=== PATIENT | female | born 1970 | race Caucasian/White ===

== ENCOUNTER 2019-07-15 20:34 | Emergency (ER) | payer BC ==
--- OUTSIDE RECORDS SUMMARY | 2019-07-15 20:52 | XMS REPORT | Continuity of Care Document ---
:1970 External Reference #:[id number] Author Name Luis Dawkins M.D. Address [address] [place] [address] Care Team Providers Name Role Phone Manny Reyes M.D. - Family Medicine Care Team Information Lieutenant Governor [phone] Tony Doe M.D. - Plastic Surgery Care Team Information Lieutenant Governor [phone] Within the Head and Neck Problems Active Problems Provider Date Tear film insufficiency Jarod Dobbs M.D. Onset: 06/07/2019 Attention deficit hyperactivity disorder Onset: Moderate depression Onset: Lagophthalmos Luis Dawkins M.D. Onset: 07/06/2019 Social History Type Date Description Comments Sex Unknown ETOH Use Occasionally consumes alcohol Tobacco Use Start: Unknown Patient has never smoked Recreational Drug Use Denies Drug Use Smoking Status Reviewed: 07/06/19 Patient has never smoked Allergies, Adverse Reactions, Alerts Active Allergies Reaction Severity Comments Date Clavulanic Acid 06/07/2019 Clindamycin 06/07/2019 Sulfamethoxazole 06/07/2019 Animals 07/06/2019 Medications Active Medications SIG Qnty Indications Ordering Provider Date Adderall Unknown 5mg Tablets Wellbutrin SR 1 tab twice a Unknown 100mg Tablets day by mouth ER 12HR Bupropion Hydrochloride Unknown ER (SR) 200mg Tablets ER 12HR Pramipexole Unknown Dihydrochloride 1mg Tablets Sumatriptan Succinate Unknown 100mg Tablets Restasis Instill 1 Drop Unknown 0.05% Emulsion In Both Eyes Two Times A Day Prednisolone Acetate Instill 2 Drops Unknown 1% In Both Eyes Suspension Every 4 Hours Angie 128 QH4 Unknown 2% Solution Immunizations Description No Information Available Vital Signs Description No Information Available Results Description No Information Available Procedures Date Code Description Status 06/07/2019 80442 New Patient Comprehensive Exam Completed Medical Devices Description No Information Available Encounters Description No Information Available Assessments Date Code Description Provider 07/06/2019 H02.204 Unspecified lagophthalmos left upper eyelid Luis Dawkins M.D. 06/07/2019 H04.123 Dry eye syndrome of bilateral lacrimal Jarod Sushma Dobbs M.D. glands Plan of Treatment 07/06/2019 - Luis Dawkins M.D.H02.204 Unspecified lagophthalmos left upper eyelidComments:Smoking can increase the risk of developing or worsening any eye related disease, as well as affect your overall health. If you are a smoker, we strongly recommend that you quit.If you are not a smoker, we strongly recommend that you do not start. STOP USING THE ANGIE.CONTINUE USING THE PREDNISOLONE EYE DROP FOR 10 MORE DAYS DIRECTED. CONTINUE TO USE THE MOISTURE GEL DROPS EVERY 4 HOURSFollow up:As needed Functional Status Description No Information Available Mental Status Description No Information Available Referrals Description No Information Available
--- NOTE | 2019-07-15 21:01 | ED ---
Upper Extremity Pain - HPI Summary HPI Summary: This pt is a 48 Y/O F presenting to [facility] accompanied by her friend with a CC of a L shoulder injury that occurred at 1730 at the gym today. She states that the pain in an 8/10 in severity. She states that she was preforming a lifting exercise when she heard a sound described as cracking knuckles. She states that her shoulder hurts with abduction, rotations, and flexion. She denies any cough, fever, chills, and neck pain. She states that she has a PMHx of hypermobility syndrome. - History of Current Complaint Chief Complaint: EDShoulderClavicCruzj Stated Complaint: LT SHOULDER INJURY PER PT Time Seen by Provider: 07/15/19 20:53 Hx Obtained From: Patient Mechanism Of Injury: Other - lifting weights Onset/Duration: Started Hours Ago, Still Present Timing: Constant Severity Initially: Severe Severity Currently: Severe Pain Location: Shoulder - L Aggravating Factor(s): Flexion, Abduction, Twisting Alleviating Factor(s): Rest Associated Signs & Symptoms: Positive: Negative - cough, chills, and neck pain. , Weakness. Negative: Fever Related History: Similar Episode/Dx As - Allergies/Home Medications Allergies/Adverse Reactions: Allergies Allergy/AdvReac Type Severity Reaction Status Date / Time amoxicillin [From Augmentin] Allergy throat Verified 07/15/19 20:40 tightness clavulanic acid Allergy throat Verified 07/15/19 20:40 [From Augmentin] tightness clindamycin Allergy throat Verified 07/15/19 20:40 tightness Sulfa (Sulfonamide Allergy See Comment Verified 07/15/19 20:40 Antibiotics) PMH/Surg Hx/FS Hx/Imm Hx Previously Healthy: Yes Endocrine/Hematology History: Denies: Hx Anticoagulant Therapy, Hx Diabetes, Hx Thyroid Disease Cardiovascular History: Denies: Hx Hypertension, Hx Pacemaker/ICD, Hx Peripheral Vascular Disease Respiratory History: Reports: Hx Asthma Denies: Hx Chronic Obstructive Pulmonary Disease (COPD) GI History: Denies: Hx Cirrhosis History: Denies: Hx Renal Disease Musculoskeletal History: Reports: Other Musculoskeletal History - hypermobility Denies: Hx Arthritis, Hx Osteoporosis Sensory History: Denies: Hx Cataracts, Hx Contacts or Glasses, Hx Glaucoma, Hx Hearing Aid Opthamlomology History: Denies: Hx Cataracts, Hx Contacts or Glasses, Hx Glaucoma Neurological History: Reports: Hx Headaches Denies: Hx Dementia, Hx Seizures, Hx Transient Ischemic Attacks (TIA) Psychiatric History: Denies: Hx Anxiety, Hx Depression, Hx Panic Disorder, Hx Substance Abuse - Cancer History Hx Chemotherapy: No Hx Radiation Therapy: No - Surgical History Surgical History: Yes Surgery Procedure, Year, and Place: NODULES ON VOCAL CORDS, BREAST REDUCTION, R SHOULDER ROTATOR CUFF SURGERY Infectious Disease History: No Infectious Disease History: Denies: Hx Clostridium Difficile, Hx Hepatitis, Hx Human Immunodeficiency Virus (HIV), Hx Shingles, Hx Tuberculosis, Traveled Outside the [place] in Last 30 Days - Family History Known Family History: Positive: Other - hypermobility syndrome in mother Negative: Cardiac Disease, Diabetes - Social History Occupation: Employed Full-time Lives: With Family Alcohol Use: Rare Hx Substance Use: No Substance Use Type: Reports: None Hx Tobacco Use: No Smoking Status (MU): Never Smoked Tobacco Review of Systems Negative: Fever, Chills ENT: Negative - neck pain Negative: Cough Positive: Decreased ROM, Other - L shoulder pain All Other Systems Reviewed And Are Negative: Yes Physical Exam - Summary Physical Exam Summary: Constitutional: Well-developed, Well-nourished, Alert. (-) Distressed Skin: Warm, Dry HENT: Normocephalic; Atraumatic Eyes: Conjunctiva normal Neck: Musculoskeletal ROM normal neck. (-) JVD, (-) Stridor, (-) Tracheal deviation Cardio: Rhythm regular, rate normal, Heart sounds normal; Intact distal pulses; The pedal pulses are 2+ and symmetric. Radial pulses are 2+ and symmetric. (-) Murmur Pulmonary/Chest wall: Effort normal. (-) Respiratory distress, (-) Wheezes, (-) Rales Abd: Soft, (-) tenderness, (-) Distension, (-) Guarding, (-) Rebound Musculoskeletal: (-) Edema, Negative nears test, Pain with abduction, no pain with adduction, No bony tenderness, pain to palpitation Lymph: (-) Cervical adenopathy Neuro: Alert, Oriented x3 Psych: Mood and affect Normal Triage Information Reviewed: Yes Vital Signs On Initial Exam: Initial Vitals Temp Pulse Resp BP Pulse Ox 98.5 F 78 15 158/101 100 07/15/19 20:37 07/15/19 20:37 07/15/19 20:37 07/15/19 20:37 07/15/19 20:37 Vital Signs Reviewed: Yes Diagnostics - Vital Signs Vital Signs Temp Pulse Resp BP Pulse Ox 07/15/19 20:37 98.5 F 78 15 158/101 100 - Laboratory Lab Statement: Any lab studies that have been ordered have been reviewed, and results considered in the medical decision making process. Course/Dx - Course Course Of Treatment: Patient is here with possible left shoulder injury in the setting of hypermobility syndrome. Patient's symptoms are consistent with a rotator cuff injury. Patient was told by her orthopedic surgeon [facility] that she needs urgent surgery with injuries need to be diagnosed via urgent MRI. Patient has no medical need for an emergent MRI tonight. Even if an MRI showed a injury, patient will not be seen by her orthopedic surgeon until Thursday due to the holiday weekend. Patient is encouraged to call the orthopedic surgeon tomorrow to have her referred for an outpatient MRI. - Diagnoses Provider Diagnoses: Injury of left shoulder, Hypermobility arthralgia Discharge ED - Sign-Out/Discharge Documenting (check all that apply): Patient Departure - discharge Patient Received Moderate/Deep Sedation with Procedure: No - Discharge Plan Condition: Stable Disposition: HOME Patient Education Materials: Shoulder Sprain (ED), Connective Tissue Disorders (ED) Referrals: Manny Reyes MD [Primary Care Provider] - 2 Days Additional Instructions: CALL YOUR ORTHOPEDIC IN THE MORNING TO SCHEDULE AN EMERGENT MRI. RETURN TO THE EMERGENCY DEPARTMENT FOR ANY NEW OR WORSENING SYMPTOMS. USE YOUR SLING AT HOME AND TAKE IBUPROFEN FOR PAIN MANAGEMENT. - Billing Disposition and Condition Condition: STABLE Disposition: Home - Attestation Statements Document Initiated by Jamey: Yes Documenting Scribe: Ivan Kraus Provider For Whom Jamey is Documenting (Include Credential): Doroteo Mckee MD Scribe Attestation: vIan Torres, scribed for Doroteo Mckee MD on 07/15/19 at 2143. Scribe Documentation Reviewed: Yes Provider Attestation: The documentation as recorded by the Ivan mirza accurately reflects the service I personally performed and the decisions made by me, Doroteo Mckee MD Status of Scribe Document: Viewed
[2019-07-15 22:13] VITALS: BP 125/94
== END 2019-07-15 22:07 | disposition home or self-care (01) ==
LOC: ED 20:34
DX: S49.92XA Unspecified injury of left shoulder and upper arm, initial encounter (principal); X50.9XXA Other and unspecified overexertion or strenuous movements or postures, initial encounter; Y92.9 Unspecified place or not applicable; Z79.899 Other long term (current) drug therapy; Z88.1 Allergy status to other antibiotic agents; Z88.2 Allergy status to sulfonamides
CPT/HCPCS: 99281

== ENCOUNTER 2019-08-12 06:24 | Inpatient (IN) | payer BC ==
[2019-08-12] MEDS ORDERED: Morphine 4 MG/ML VIAL (1 ml) 4 MG/ML VIAL IV ONE ×2 (06:42→10:25)
[2019-08-12] MEDS ORDERED: Ondansetron INJ* 2 MG/ML VIAL IV ONE ×2 (06:42→10:39)
[2019-08-12] MEDS ORDERED: NS 0.9% 1000 ML** 1,000 ML IV ONE ×2 (06:46→09:52)
--- NOTE | 2019-08-12 06:47 | ED ---
Abdominal Pain/Female - HPI Summary HPI Summary: This patient is a 48-year-old female with a recent rotator cuff surgery 9 days ago presenting to the ED with severe 10/10 abdominal pain starting in the director of patient care hours. She states she felt pressure as well as pain in the area which was improved after she had a bowel movement. Bowel movement contained bright red blood. Patient states the pain lessened and then returned worse than before. She has a very high pain tolerance which makes this most concerning for her. She has been taking opioids for the pain related to RTC surgery ([facility]). She does endorse nausea, however this is mild. Denies drug use. Denies urinary symptoms or back pain. Denies CP or SOB. She also had an episode after BM of profuse diaphoresis. No subjective fevers and denies recent illness. Denies bleeding or clotting disorder. Current medications include Imitrex, aspirin, Pramiprexole, Wellbutrin, Adderall. Colonoscopy in November from Dr. Centeno shows possible protitis. She did have blood stools at that time, but has not had any episodes since. RTC surgery by surgeon in [facility] 9 days ago. - History of Current Complaint Chief Complaint: EDBrissa Stated Complaint: ABD PAIN/BLOOD IN STOOL PER PT Time Seen by Provider: 08/12/19 06:32 Hx Obtained From: Patient, Family/Dock Pumper ?: No Onset/Duration: Sudden Onset Timing: Constant Severity Initially: Severe Severity Currently: Severe Pain Intensity: 9 Pain Scale Used: 0-10 Numeric Location: Diffuse Radiates: No Character: Sharp, Cramping, Tearing Aggravating Factor(s): Nothing Alleviating Factor(s): Bowel Movement - temporarily Associated Signs and Symptoms: Positive: Diaphoresis, Constipation, Blood in Stool, Diarrhea. Negative: Fever, Cough, Chest Pain, Dizzy, Urinary Symptoms, Decreased Appetite, Vaginal Bleeding, Nausea, Vomiting - Risk Factors Ectopic Risk Factor: Negative Ovarian Torsion Risk Factor: Negative Allergies/Adverse Reactions: Allergies Allergy/AdvReac Type Severity Reaction Status Date / Time clavulanic acid Allergy throat Verified 08/12/19 06:30 [From Augmentin] tightness clindamycin Allergy throat Verified 08/12/19 06:30 tightness Sulfa (Sulfonamide Allergy See Comment Verified 08/12/19 06:30 Antibiotics) Home Medications: Home Medications Aspirin EC TAB* [Ecotrin EC Low Dose 81 MG*] 81 mg PO DAILY 08/12/19 [History Confirmed 08/12/19] Nitroglycerin TAB 0.4 MG* 0.4 mg SL Q5M PRN 08/12/19 [History Confirmed 08/12/19 ] Pramipexole TAB* [Mirapex TAB*] 1 mg PO DAILY 08/12/19 [History Confirmed ] buPROPion SR TAB* [Wellbutrin SR TAB*] 400 mg PO BID 08/12/19 [History Confirmed 08/12/19] oxyCODONE/Acetam5/325MG PREPAK [Percocet 5/325 TAB*] 1 tab PO Q4HR PRN 08/12/19 [History Confirmed 08/12/19] PMH/Surg Hx/FS Hx/Imm Hx Previously Healthy: Yes Endocrine/Hematology History: Denies: Hx Anticoagulant Therapy, Hx Diabetes, Hx Thyroid Disease Cardiovascular History: Denies: Hx Hypertension, Hx Pacemaker/ICD, Hx Peripheral Vascular Disease Respiratory History: Reports: Hx Asthma Denies: Hx Chronic Obstructive Pulmonary Disease (COPD) GI History: Denies: Hx Cirrhosis History: Denies: Hx Renal Disease Musculoskeletal History: Reports: Other Musculoskeletal History - hypermobility Denies: Hx Arthritis, Hx Osteoporosis Sensory History: Denies: Hx Cataracts, Hx Contacts or Glasses, Hx Glaucoma, Hx Hearing Aid Opthamlomology History: Denies: Hx Cataracts, Hx Contacts or Glasses, Hx Glaucoma Neurological History: Reports: Hx Headaches Denies: Hx Dementia, Hx Seizures, Hx Transient Ischemic Attacks (TIA) Psychiatric History: Denies: Hx Anxiety, Hx Depression, Hx Panic Disorder, Hx Substance Abuse - Cancer History Hx Chemotherapy: No Hx Radiation Therapy: No - Surgical History Surgery Procedure, Year, and Place: NODULES ON VOCAL CORDS, BREAST REDUCTION, R SHOULDER ROTATOR CUFF SURGERY. BLEPHAROPLASTY - Immunization History Hx Pertussis Vaccination: No Immunizations Up to Date: Yes Infectious Disease History: No Infectious Disease History: Denies: Hx Clostridium Difficile, Hx Hepatitis, Hx Human Immunodeficiency Virus (HIV), Hx Shingles, Hx Tuberculosis, Traveled Outside the [place] in Last 30 Days - Family History Known Family History: Positive: Other - hypermobility syndrome in mother Negative: Cardiac Disease, Diabetes - Social History Occupation: Employed Full-time Lives: With Family Alcohol Use: Rare Hx Substance Use: No Substance Use Type: Reports: None Hx Tobacco Use: No Smoking Status (MU): Never Smoked Tobacco Review of Systems Positive: Skin Diaphoresis. Negative: Fever, Chills, Fatigue Negative: Palpitations, Chest Pain Negative: Shortness Of Breath, Cough Positive: Abdominal Pain, Diarrhea, Other - BRBPR Genitourinary: Negative Positive: no symptoms reported, see HPI Negative: Arthralgia, Myalgia Negative: Rash, Bruising Neurological: Negative All Other Systems Reviewed And Are Negative: Yes Physical Exam Triage Information Reviewed: Yes Vital Signs On Initial Exam: Initial Vitals Temp Pulse Resp BP Pulse Ox 97.5 F 87 16 158/101 100 08/12/19 06:26 08/12/19 06:08/12/19 06:08/12/19 06:08/12/19 06:26 Vital Signs Reviewed: Yes Appearance: Positive: Pain Distress Skin: Positive: Warm, Skin Color Reflects Adequate Perfusion, Dry Head/Face: Positive: Normal Head/Face Inspection Eyes: Positive: EOMI, OLENA, Conjunctiva Clear Neck: Positive: Supple, No Lymphadenopathy Respiratory/Lung Sounds: Positive: Clear to Auscultation, Breath Sounds Present Cardiovascular: Positive: RRR, Pulses are Symmetrical in both Upper and Lower Extremities Abdomen Description: Positive: Other: - tenderness throughout bilateral lower quadrants without radiation Musculoskeletal: Positive: Normal, Strength/ROM Intact Neurological: Positive: Speech Normal Psychiatric: Positive: Normal, Affect/Mood Appropriate AVPU Assessment: Alert Diagnostics - Vital Signs Vital Signs Temp Pulse Resp BP Pulse Ox 08/12/19 06:26 97.5 F 87 16 158/101 100 - Laboratory Result Diagrams: 08/12/19 06:59 08/12/19 06:59 Lab Statement: Any lab studies that have been ordered have been reviewed, and results considered in the medical decision making process. Abdominal Pain Fem Course/Dx - Course Course Of Treatment: During his course of treatment, the patient is evaluated for severe lower abdominal pain. Pain is currently rated at 10/10. On arrival into the ED, due to her pain distress, she was immediately given morphine and Zofran on arrival and 1 L fluids. On physical examination, she has diffuse tenderness throughout, she states somewhat worse to the right side. Denies any pain above the umbilicus, no right upper quadrant or left upper quadrant tenderness. She does describe the pain as cramping, stabbing, sharp and diffuse. She denies any nausea or vomiting with these episodes. One bloody loose stool this morning, however she has been c/o constipation secondary to her recent opioids for RTC surgery. Morphine did improve her symptoms, however after approximately 1.5 hours, she complains of 9/10 pain again, and she was given 1 mg Dilaudid. Labs were obtained which shows slight hypomagnesemia and hypokalemia. These were repleted with 2 mg magnesium and 20 PO potassium chloride. She was subsequently given 8mg morphine and 4mg zofran d/t continuing pain. CT abdomen and pelvis obtained: IMPRESSION: Wall thickening of the descending colon and transverse colon consistent with colitis. There is wall thickening of the body of the stomach. Although this may represent food material, cannot totally exclude an underlying mass and clinical correlation and upper GI series or endoscopy is suggested. Hepatic cysts are noted. At this point, I am concerned she has ischemic colitis secondary to opioids vs. other etiology. Discussed case with Dr. Mathews who agrees to consult and admit for further evaluation and pain management. Discussed case with Dr. Sethi at 11:10 AM also agreeing to see patient. Pt admitted at 11:30am. - Diagnoses Differential Diagnosis: Positive: Bowel Obstruction, Constipation, Diverticulitis, Other - ischemic colitis, colitis, BRBPR Provider Diagnoses: Abdominal pain - Provider Notifications Discussed Care Of Patient With: Fer Mathews Instructed by Provider To: Admit As Inpatient - On Discharge ED - Sign-Out/Discharge Documenting (check all that apply): Patient Departure Patient Received Moderate/Deep Sedation with Procedure: No - Discharge Plan Condition: Fair Disposition: ADMITTED TO [facility] Referrals: Manny Reyes MD [Primary Care Provider] - - Billing Disposition and Condition Condition: FAIR Disposition: Admitted to [facility]
[2019-08-12 07:10] LABS: ABS Eosinophils 0.1 10^3/ul (0-0.6); ABS Lymphocytes 0.8 10^3/ul (1.0-4.8); ABS Monocytes 0.6 10^3/ul (0-0.8); ABS Neutrophils 11.4 10^3/ul (1.5-7.7); Eosinophil % 1.1 %; Hematocrit 34 % (35-47); Hemoglobin 11.7 g/dL (12.0-16.0); Lymphocyte % 6.3 %; Mean Corpuscular HGB Conc 35 g/dL (31-36); Mean Corpuscular Hemoglobin 30 pg (27-31); Mean Corpuscular Volume 86 fL (80-97); Mean Platelet Volume 9.2 fL (7.4-10.4); Platelet Count 198 10^3/uL (150-450); Red Blood Count 3.95 10^6 /uL (3.70-4.87); Red Cell Distribution Width 13 % (10-15); White Blood Count 13.1 10^3/uL (3.5-10.8)
[2019-08-12 07:29] LABS: ALT 29 U/L (7-52); AST 25 U/L (13-39); Albumin 3.9 g/dL (3.2-5.2); Albumin/Globulin Ratio 1.6 (1-3); Alkaline Phosphatase 56 U/L (34-104); Anion Gap 8 mmol/L (2-11); BUN/Creatinine Ratio 11.4 (8-20); Blood Urea Nitrogen 8 mg/dL (6-24); CO2 Carbon Dioxide 26 mmol/L (22-32); Calcium 8.9 mg/dL (8.6-10.3); Chloride 101 mmol/L (101-111); EGFR African American 108.1 (>60); EGFR Non-African American 89.3 (>60); Globulin 2.4 g/dL (2-4); Glucose 133 mg/dL (70-100); Magnesium 1.5 mg/dL (1.9-2.7); Potassium 3.2 mmol/L (3.5-5.0); Sodium 135 mmol/L (135-145); Total Protein 6.3 g/dL (6.4-8.9)
[2019-08-12 07:35] LABS: HCG Pregnancy < 0.60 mIU/mL
[2019-08-12] MEDS ORDERED: HYDROmorphone INJ* 0.5 MG/0.5 ML SYRINGE IV ONE ×2 (08:15→11:35)
--- OUTSIDE RECORDS SUMMARY | 2019-08-12 08:18 | XMS REPORT | Continuity of Care Document ---
:1970 External Reference #:[id number] Author Name Anne Haider M.D. (transmitted by agent of provider Yojana Conklin) Address [address] [place] [address] Care Team Providers Name Role Phone Manny Reyes MD - Family Medicine Care Team Information Picker Feeder [phone] James Perry MD - Gastroenterology Care Team Information Picker Feeder [phone] Irene Olmedo MD - Obstetrics & Care Team Information Picker Feeder [phone] Gynecology Problems Active Problems Provider Date Mild persistent asthma Fer Mathews M.D.,FACP Onset: 04/17/2014 Migraine without aura Fer Mathews M.D.,FACP Onset: 04/17/2014 Postconcussion syndrome Fer Mathews M.D.,FACP Onset: 04/17/2014 Posttraumatic stress disorder Fer Mathews M.D.,FACP Onset: 04/17/2014 Anxiety disorder Fer Mathews M.D.,FACP Onset: 04/17/2014 Strain of rotator cuff capsule Anne Haider M.D. Onset: 07/20/2019 Social History Type Date Description Comments Sex Unknown ETOH Use Currently consumes alcohol Tobacco Use Start: Unknown Patient smoking status is unknown Smoking Status Reviewed: 07/20/19 Patient smoking status is unknown Exercise Type/Frequency Exercises regularly Allergies, Adverse Reactions, Alerts Active Allergies Reaction Severity Comments Date Clavulanic Acid 06/15/2015 Clindamycin 01/20/2017 Inactive Allergies NKDA 04/17/2014 Medications Active Medications SIG Qnty Indications Ordering Date Provider Ciprofloxacin HCL 1 po bid 14tabs Fer Tolentino 10/18/2018 500mg Prema Mathews,FACP Tablets Epipen 2-Lamont inject as 2units Fer Tolentino 08/05/2018 0.3mg/0.3ML directed prn Prema Mathews,FACP Solution Auto-Inject Carafate 1 qid prn 40tabs Fer Tolentino 04/08/2018 1gm Tablets Prema Mathews,FACP Flovent HFA 2 puff twice a 12gm Fer Tolentino 08/13/2017 110mcg/Act day Prema Mathews,FACP Aerosol Patanol 1-2 drops each 5units Fer Tolentino 08/12/2017 0.1% Solution eye every day Prema Mathews,FACP twice a day as needed Naproxen 1 by mouth twice 60tabs M25.511 Willi F 04/09/2017 500mg Tablets a day as needed MD Lucinda pain Metronidazole topical twice a 45gm Fer Tolentino 12/13/2015 0.75% Gel day for perioral Prema Mathews,FACP dermatitis Ventolin HFA 2 puffs po qid 1mon Fer Tolentino 09/24/2014 108(90Base) prn Prema Mathews,FACP mcg/Act Aerosol Triamcinolone Acetonide topical every day 30g Fer Tolentino 03/09/2014 to affected area Prema Mathews,FACP 0.1% Ointment as needed Ibuprofen Take 1 Tablet 90tabs Fer Tolentino 08/13/2010 600mg Tabs Orally Three Prema Mathews,FACP Times A Day as Needed Pramipexole take one tablet 30tabs Fer Tolentino 06/22/2010 Dihydrochloride by mouth at Prema Mathews,FACP 1mg Tablets bedtime Imitrex 1/2-1 every 2 18tabs Fer Tolentino 06/13/2009 100mg Tablets hours as needed Prema Mathews,FACP mdd2 (please deliver) Bupropion HCL ER (SR) take one tablet 60tabs Fer Tolentino 200mg by mouth every Prema Mathews,FACP Tablets ER 12HR morning and 1 tablet in the early afternoon Immunizations CPT Code Status Date Vaccine Reaction Lot # [id number] Given 09/15/2017 Influenza Virus Vaccine, No immediate [id number] Quadrivalent, Split, reaction...jh Preservative Free 56595 Given 09/18/2014 Flu Vaccine Split Virus Preservative Free For Indiv 3Yr Older [id number] Given 10/24/2013 Flu Vaccine Split Virus Preservative Free For Indiv 3Yr Older 95684 Given 10/29/2012 Flu Vaccine Split Virus [id number] Preservative Free For Indiv 3Yr Older 90603 Given 09/04/2009 Influenza Virus 3Yrs & Over Vital Signs Date Vital Result Comment 07/20/2019 12:46pm Height 68.5 inches 5'8.50" Weight 153.00 lb stated Heart Rate 78 /min BP Systolic 120 mmHg BP Diastolic 72 mmHg Respiratory Rate 12 /min Pain Level 8 8 with movement BMI (Body Mass Index) 22.9 kg/m2 04/09/2017 8:21am Height 68.5 inches 5'8.50" Weight 154.00 lb Heart Rate 72 /min BP Systolic 110 mmHg BP Diastolic 72 mmHg Respiratory Rate 14 /min Body Temperature 97.3 F Pain Level 4 BMI (Body Mass Index) 23.1 kg/m2 Results Description No Information Available Procedures Date Code Description Status 10/27/2014 18572992 Mammogram Completed 10/19/2014 [id number] Mammogram Completed 10/11/2013 [id number] Mammogram Completed Medical Devices Description No Information Available Encounters Description No Information Available Assessments Date Code Description Provider 07/20/2019 M25.512 Pain in left shoulder Anne Haider M.D. 07/20/2019 S46.012A Strain of muscle(s) and tendon(s) of the Anne Haider M.D. rotator cuff of left shoulder, initial encounter Plan of Treatment 07/20/2019 - Anne Haider M.D.M25.512 Pain in left shoulderNew Xrays:Shoulder Left 2+ VWS, Ordered: 07/20/19Follow up:Follow up: need mri L shoulder - then [facility] drS46.012A Strain of muscle(s) and tendon(s) of the rotator cuff of left shoulder, initial encounterNew Xrays:MRI Shoulder Left W/O , Ordered: 07/20/19 Functional Status Description No Information Available Mental Status Description No Information Available Referrals Description No Information Available
[2019-08-12] MEDS ORDERED: Iohexol 300* (CONTRAST) 10 ML SDV IV ONE (08:28)
[2019-08-12 09:06] LABS: Urine Appearance Clear; Urine Bilirubin Negative (Negative); Urine Blood Negative (Negative); Urine Color Straw; Urine Glucose Negative (Negative); Urine Ketones Negative (Negative); Urine Nitrite Negative (Negative); Urine Protein Negative (Negative); Urine Specific Gravity 1.001 (1.010-1.030); Urine Urobilinogen Negative (Negative)
[2019-08-12] MEDS ORDERED: Magnesium Sulfate 2 GM IV* 2 GM/50 ML BAG IVPB ONE (09:49)
[2019-08-12] MEDS ORDERED: Potassium Chlor TAB* 20 MEQ TAB.ER PO ONE (09:52)
[2019-08-12] MEDS ORDERED: diPHENhydraMINE IV* 50 MG/ML 1 ml VIAL (BENADRYL) IV ONE (11:47)
[2019-08-12] MEDS ORDERED: Albuterol HFA INHALER* 8 gm MDI INH PRN (12:13)
[2019-08-12] MEDS ORDERED: Nitroglycerin TAB 0.4 MG* 0.4 MG TAB SL PRN (12:13)
[2019-08-12] MEDS ORDERED: HYDROmorphone INJ* 0.5 MG/0.5 ML SYRINGE IV PRN (12:57)
[2019-08-12] MEDS ORDERED: Sucralfate TAB* 1 GM PO SCH (13:00)
[2019-08-12] MEDS: HYDROmorphone INJ1* 1 MG/ML SYRINGE IV PRN ×4 (14:28→23:35)
[2019-08-12] MEDS: Ondansetron INJ* 2 MG/ML VIAL IV PRN ×2 (14:49→20:55)
[2019-08-12] MEDS: NS 0.9% 1000 ML** 1,000 ML IV SCH ×2 (14:49→23:15)
[2019-08-12] MEDS: Sucralfate TAB* 1 GM PO SCH ×2 (17:40→20:54)
--- NOTE | 2019-08-12 19:48 | HP ---
CC: Dr. Manny Reyes; Dr. Sethi * HISTORY AND PHYSICAL: DATE OF ADMISSION: 08/12/19 CHIEF COMPLAINT: Abdominal pain. HISTORY OF PRESENT ILLNESS: This is a 48-year-old woman with history of hypermobility syndrome and migraines who presents to the emergency department with abdominal pain that started at 7 p.m. the night prior. She recently had left shoulder surgery and has been home recovering for the past week. She has been taking Percocet for pain relief and has been having some constipation. Then last night, she felt the urge to have a bowel movement. She went to the bathroom and had sudden onset of abdominal cramping and diaphoresis. She had a loose bowel movement that was described as tomato soup in color and consistency , and then throughout the night, she had several more loose stools that had red tinge to them and worsening abdominal pain that required her to come to the emergency department this morning. She explains the pain as the worst pain she has ever felt and localized it to a band-like pain across her abdomen. It persisted until she got to the emergency department and received Dilaudid, which gave her some relief. She did have some nausea which is currently at bay and she has no other complaints at this time. She has had no chest pain, shortness of breath, palpitations, falls, syncope, rashes, headaches, or fevers. She has had no recent travel and she has not eaten anything out of the ordinary. She was otherwise feeling fine besides recovering from the shoulder surgery until last evening. PAST MEDICAL HISTORY: 1. Asthma. 2. Hypermobility syndrome. 3. Migraines. 4. Restless legs syndrome. 5. Recent chest pain with a recent intermediate stress test. 6. History of a subdural hematoma and postconcussive syndrome. HOME MEDICATIONS: 1. Albuterol p.r.n. 2. Adderall 15 mg daily. 3. Percocet 1 tab q.4 p.r.n. pain. 4. Wellbutrin 400 mg b.i.d. 5. Nitroglycerin 0.4 q.5 minutes p.r.n. chest pain. 6. Mirapex 1 mg daily. 7. Carafate 1 g 4 times a day. 8. Imitrex 100 mg as needed for migraines. SOCIAL HISTORY: She exercises regularly. She is a never smoker. She drinks approximately 5 glasses of wine per week and she has had no recent travel. REVIEW OF SYSTEMS: As per the HPI. PHYSICAL EXAMINATION GENERAL: Alert, mildly ill-appearing young woman, in no distress. VITAL SIGNS: Temperature 98.1, heart rate 87, respiratory rate 20, pulse ox 97 % on room air, blood pressure 148/98. HEENT: Pupils equal, round, and reactive to light. Her oral mucosa is moist with no pharyngeal exudates. NECK: No JVP or adenopathy. LUNGS: Her lungs are clear bilaterally. CHEST: She is in a regular rate and rhythm with no murmurs. ABDOMEN: Soft. Mildly tender to deep palpation, but with no guarding or rebound. Her bowel sounds are hypoactive. RECTAL: No fissures. Anal sphincter is with normal tone. No dariel blood in the rectal vault and scant amount of blood on the glove. EXTREMITIES: No edema, rashes, or ulcers. The left upper extremity is immobilized. LABORATORY DATA: White blood cells 13.1, hemoglobin 11.7, platelets 198. Sodium 135, potassium 3.2, chloride 101, bicarb 26, glucose 133. Lactic acid 2.4 and then 1.0. Magnesium 1.5. Total bilirubin 0.6, ALT 29, AST 25. C- reactive protein 2.80. Lipase 11. IMAGING: CT abdomen and pelvis with contrast showed wall thickening of the descending colon and transverse colons, consistent with colitis. There is wall thickening of the body of the stomach. Although this may represent food material, cannot totally exclude an underlying mass and clinical correlation, upper GI series, or endoscopy is suggested. Hepatic cysts are noted. ASSESSMENT AND PLAN: This is a 48-year-old woman with history of hypermobility syndrome and migraines who presents to the emergency department with sudden onset of abdominal pain and is found to have colitis. 1. Transverse and sigmoid colitis. She does not have a history consistent with inflammatory or infectious colitis, so I suspect ischemic colitis is more likely. Her lactic acid has already returned to normal with IV fluids. I am sending an infectious workup. Her CRP is normal. Her hemoglobin is acceptable and I will trend her hemoglobin. I have discussed her case with Dr. Sethi who agrees to see her in consultation. I will keep her n.p.o., control her pain and nausea and give her bowel rest. 2. Depression. I am holding her Wellbutrin while she is n.p.o. 3. Restless legs syndrome. Continue pramipexole per her request. 4. Migraines. Hold sumatriptan while n.p.o. 5. DVT prophylaxis. Contraindicated in concern for ischemic colitis. [id number]/[facility] #: [id number] MTDD
--- NOTE | 2019-08-12 20:37 | CONS ---
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 History assisted by her mother This past week there was a 4 day interval where she was passing small ember with great effort. Yesterday midday, she felt well enough to go back partly to her exercise routine. She was still feeling bloated, however and uncomfortable. Then yesterday she had a large movement followed a few hours later by more crampy pain and looser stools. This morning, she looked in the bowl and noted blood and there have been number of bloody passages since then. She has not had any vomiting or fever, but she emphasizes her own normal temperature is atypical and is usually below 98.6. In the emergency room, she was tender and crying out with cramps. White blood count was 13.1. CT scan showed thickening of the colon. She states that she does not normally have any trouble with her bowels and does not take laxatives. She had a colonoscopy in November [address] Centeno with no significant findings. Her colon was tortuous. There have been no suspect foods or anyone else she knows with diarrhea PAST MEDICAL HISTORY: 1. Migraine headaches. 2. Status post rotator cuff surgery on the right 3 years ago and on the left 9 days ago. 3. Breast reduction surgery. 4. 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 5. GERD - omeprazole 20 mg twice a day ever since the vocal cord surgery. 6. Hypermobility syndrome - she states this was worked up 30 years ago when she had lumbar herniated disks and Ernesto Eastman, physical therapy PhD, helped coordinate a workup involving multiple specialists here. She states she has injured every joint in her body. MEDICATIONS: As an outpatient: 1. Albuterol inhaler p.r.n. 2. Sumatriptan p.r.n. 3. Aspirin 81 mg. 4. Pramipexole 1 mg. 5. Bupropion 400 mg b.i.d. 6. Adderall daily. 7. Nitroglycerin is listed p.r.n., exact indication not clarified. ALLERGIES: AUGMENTIN, CLINDAMYCIN, and SULFA ANTIBIOTICS. SOCIAL HISTORY: She is born and raised in [place]. Her parents still live here. She gave explicit permission for her ex-, a hospital staff member , to be informed on her care. She has 3 children the youngest to have his 16th birthday tomorrow. She exercises 60 to 90 minutes over half of days to strengthen and tighten up her joints REVIEW OF SYSTEMS: No history of seizures, syncope, OH, hemoptysis, TB, hepatitis, abdominal surgery renal stones. She did have an iron workup in September 2012 following up on November 2011 when her iron saturation was 4%. PHYSICAL EXAM: She is a healthy-appearing middle-aged woman, distraught and crying. She was due for a pain shot and then did receive one. HEENT exam is unremarkable other than congested mucous membranes. She has no adenopathy. Her lungs are clear. Heart sounds are normal. Breasts and pelvic exams deferred. The abdomen has normal bowel sounds. She is soft and actually not all that tender, although a little bit on the left. Rectal per the female hospitalist was normal, external and internal. Extremities show no edema or deformity. Neurologic is nonfocal. LABS: White count 13.1, hemoglobin 11.7, hematocrit 34, platelets 198. CRP 2.8. Albumin 3.9. LFTs normal. Creatinine 0.7, BUN 8. IMPRESSION: Abrupt bloody diarrhea in the context of opiate-induced constipation and no correction GI disorder. The CT and sudden onset supports ischemic colitis triggered by combination of events. She does not have any vascular history or thromboembolic risk factors, but the current history is compelling. Infectious gastroenteritis cannot be completely ruled out so agree with stool cultures to include E Coli 0157. Unprepped sigmoidoscopy will be performed. This was described to the patient and her mother. [id number]/[facility] #: [id number] [facility]
[2019-08-12] MEDS: Pramipexole TAB* 0.5 MG PO SCH (20:54)
[2019-08-12] MEDS ORDERED: buPROPion SR TAB.SR* 200 MG PO SCH (21:00)
[2019-08-13] MEDS: Ondansetron INJ* 2 MG/ML VIAL IV PRN ×4 (03:13→17:43)
[2019-08-13] MEDS: HYDROmorphone INJ1* 1 MG/ML SYRINGE IV PRN ×5 (03:15→21:22)
[2019-08-13] MEDS: SUMAtriptan TAB* 100 MG PO PRN (04:45)
[2019-08-13 06:45] LABS: ABS Eosinophils 0.1 10^3/ul (0-0.6); ABS Lymphocytes 1.4 10^3/ul (1.0-4.8); ABS Monocytes 1.1 10^3/ul (0-0.8); ABS Neutrophils 15.6 10^3/ul (1.5-7.7); Eosinophil % 0.8 %; Hematocrit 34 % (35-47); Hemoglobin 11.9 g/dL (12.0-16.0); Lymphocyte % 7.8 %; Mean Corpuscular HGB Conc 35 g/dL (31-36); Mean Corpuscular Hemoglobin 30 pg (27-31); Mean Corpuscular Volume 86 fL (80-97); Platelet Count 212 10^3/uL (150-450); Red Blood Count 3.97 10^6 /uL (3.70-4.87); Red Cell Distribution Width 14 % (10-15); White Blood Count 18.3 10^3/uL (3.5-10.8)
[2019-08-13 07:01] LABS: BUN/Creatinine Ratio 3.1 (8-20); Calcium 8.3 mg/dL (8.6-10.3); EGFR African American 117.7 (>60); EGFR Non-African American 97.3 (>60); Potassium 3.8 mmol/L (3.5-5.0)
[2019-08-13] MEDS: Sucralfate TAB* 1 GM PO SCH ×5 (07:03→20:30)
[2019-08-13 07:41] LABS: Magnesium 1.6 mg/dL (1.9-2.7)
[2019-08-13] MEDS: NS 0.9% 1000 ML** 1,000 ML IV SCH ×2 (08:26→20:29)
[2019-08-13] MEDS ORDERED: Influenza VAC *QUAD* 2019-20* 0.5 ML SYRINGE IM ONE (09:00)
[2019-08-13] MEDS ORDERED: Midazolam* 1 MG/ML 10 ML VIAL (10 MG) ONE (09:10)
[2019-08-13] MEDS ORDERED: fentaNYL* 50 MCG/ML 2 ML VIAL (100 MCG VIAL) ONE (09:10)
[2019-08-13] MEDS ORDERED: Zosyn per Pharmacy* NOTE FOLLOW UP PRN (13:25)
[2019-08-13] MEDS ORDERED: ZOSYN 3.375 GM x ONE DOSE over 30 miuntes IVPB ×2 (14:00)
--- NOTE | 2019-08-13 15:03 | PN ---
Subjective Date of Service: 08/13/19 Interval History: Sigmoidoscopy today showed ulcerations suggestive of ischemic colitis. She is seen after the procedure and feels okay. She is eating a clear liquid diet and feels good with this; appetite is good. Pain is controlled with increased dose of dilaudid. No nausea. Has not had a formed bowel movement since arriving--stools are only blood. Objective Active Medications: Albuterol (Ventolin Hfa Inhaler*) 2 puff INH Q4H PRN PRN Reason: SOB/WHEEZING Hydromorphone HCl (Dilaudid Inj1s*) 2 mg IV Q3H PRN PRN Reason: PAIN - SEVERE Last Admin: 08/13/19 11:53 Dose: 2 mg Sodium Chloride (Ns 0.9% 1000 Ml) 1,000 mls @ 125 mls/hr IV PER RATE [facility] Last Admin: 08/13/19 08:26 Dose: 125 mls/hr Piperacillin Sod/Tazobactam (Sod 3.375 gm/ Sodium Chloride) 100 mls @ 25 mls/ hr IVPB Q8H [facility] Nitroglycerin (Nitroglycerin Tab 0.4 Mg*) 0.4 mg SL Q5M PRN PRN Reason: ANGINA Ondansetron HCl (Zofran Inj*) 4 mg IV Q4H PRN PRN Reason: NAUSEA Last Admin: 08/13/19 12:08 Dose: 4 mg Pharmacy Consult (Zosyn Per Pharmacy*) 1 note FOLLOW UP . PRN PRN Reason: PER PROTOCOL Pramipexole Dihydrochloride (Mirapex Tab*) 1 mg PO BEDTIME [facility] Last Admin: 08/12/19 20:54 Dose: 1 mg Sucralfate (Carafate*) 1 gm PO 0600,1100,1600,2100 [facility] Last Admin: 08/13/19 12:08 Dose: 1 gm Sumatriptan Succinate (Imitrex Tab*) 100 mg PO .SEE INSTRUCTIONS PRN PRN Reason: MIGRAINE HEADACHE Last Admin: 08/13/19 04:45 Dose: 100 mg Vital Signs - 8 hr 08/13/19 08/13/19 08/13/19 07:02 07:21 08:02 Temperature 100.8 F Pulse Rate 98 Respiratory 16 18 18 Rate Blood Pressure 117/71 (mmHg) O2 Sat by Pulse 97 Oximetry 08/13/19 08/13/19 08/13/19 11:15 11:53 14:26 Temperature 99.1 F Pulse Rate 89 Respiratory 20 17 20 Rate Blood Pressure 117/62 (mmHg) O2 Sat by Pulse 94 Oximetry Oxygen Devices in Use Now: None Appearance: alert, well appearing, in bed eating lunch Eyes: No Scleral Icterus, PERRLA Ears/Nose/Mouth/Throat: NL Teeth, Lips, Gums Neck: NL Appearance and Movements; NL JVP Cardiovascular: NL Sounds; No Murmurs; No JVD, RRR Abdominal: - - mildly tender to deep palpation, L>R, no guarding or rebound Extremities: No Edema Skin: No Rash or Ulcers, - - left shoulder incisions are clean and healing well Result Diagrams: 08/13/19 06:31 08/13/19 06:31 Microbiology and Other Data: Microbiology 08/12/19 15:15 Stool Gross Appearance - Final Stool Stool Lactoferrin - Final Stool Occult Blood (CAITLYN) - Final Assess/Plan/Problems-Billing Assessment: This is a 48 year old woman with history of migraines, hypermobility syndrome, and a recent left shoulder surgery who presented 08/12 with abdominal pain and was found to have sigmoid and transverse colitis. - Patient Problems (1) Ischemic colitis Current Visit: Yes Status: Acute Code(s): K55.9 - VASCULAR DISORDER OF INTESTINE, UNSPECIFIED SNOMED Code(s): 29650036 Comment: confirmed on sigmoidoscopy this morning inciting factor unclear continue supportive care with IVF, bowel rest, pain control will add antibiotics today ([facility] clinical guideline: epidemiology, risk factors, patterns of presentation, diagnosis, and management of colon ischemia) (2) DVT prophylaxis Current Visit: Yes Status: Acute Code(s): Z29.9 - ENCOUNTER FOR PROPHYLACTIC MEASURES, UNSPECIFIED SNOMED Code(s): 542137807 Comment: contraindicated in setting of bloody diarrhea
[2019-08-13] MEDS ORDERED: Magnesium Oxide TAB* 400 MG PO ONE (15:10)
--- NOTE | 2019-08-13 18:37 | PRO ---
DATE: 08/13/19 - ROOM #422 REFERRING PHYSICIAN: Manny Reyes MD * PROCEDURES: Flexible sigmoidoscopy and biopsy of proximal sigmoid colon without a prep. INDICATION: Bloody diarrhea in 48-year-old woman, constipated while on opiates after shoulder surgery. She has no chronic history of bowel habit abnormalities. She had a colonoscopy in November 2018 that was largely unremarkable. See separate consult. Informed consent was obtained with an opportunity for questions and special concerns. She is currently an inpatient. Her white count had gone from 13 to 18. ENDOSCOPIST: Dr. Sethi. MEDICATIONS: Midazolam 8.5, fentanyl 125. FINDINGS: She is a middle-aged woman, teary and quite distraught at this time. She is on her back supine. Head and neck elevated at 20 to 25 degrees and the left arm positioned with pillows and stabilized. Her abdomen is symmetric with bowel sounds present, not sounding obstructive. There is some deep tenderness, but superficially the abdomen is soft. She had had a bloody passage about a half hour previously. The pediatric colonoscope was inserted with the patient in the same position assisted by the nurse who is continuously present. Mucosa in the rectum and retrosigmoid appeared normal, though it was splattered and covered about 50% by blood effluent coming from above. It was washed clear periodically documenting the normal pattern. The mucosa was less covered in the mid to early upper sigmoid and clearly normal with a normal vascular pattern. Then abruptly some scattered short erosions coalesced until a continuous purplish blue exudative eroded mucosa, atypical of ischemic colitis. There was no pressing need to go further. Biopsies were taken from the leading edge of this segment, which was estimated to be close to the sigmoid descending junction. IMPRESSION: Segmental colitis beginning in about 55 cm, visually most consistent with ischemic colitis and biopsies pending as well as stool cultures. If this proves to be ischemic colitis, the focus would be presumably on medications including [id number] laxatives for the potential that a combination of them triggered this. She is low risk for vascular and thrombophilic episodes. Addendum: biopsy confirms ischemic colitis [id number]/[facility] #: [id number] MTDD
[2019-08-13] MEDS: Piperacillin/Tazobac ADVAN(*) 3.375 GM in NS 0.9% 100 ML* 100 ML IVPB SCH (20:29)
[2019-08-13] MEDS: Pramipexole TAB* 0.5 MG PO SCH (20:30)
[2019-08-14] MEDS: SUMAtriptan TAB* 100 MG PO PRN (01:54)
[2019-08-14] MEDS: HYDROmorphone INJ1* 1 MG/ML SYRINGE IV PRN ×7 (01:55→23:27)
[2019-08-14] MEDS: Ondansetron INJ* 2 MG/ML VIAL IV PRN ×4 (01:57→23:27)
[2019-08-14] MEDS: diPHENhydraMINE PO* 25 MG PO PRN ×3 (02:33→23:27)
[2019-08-14] MEDS: Piperacillin/Tazobac ADVAN(*) 3.375 GM in NS 0.9% 100 ML* 100 ML IVPB SCH ×3 (03:47→19:39)
[2019-08-14] MEDS: Sucralfate TAB* 1 GM PO SCH ×4 (05:31→21:19)
[2019-08-14] MEDS: NS 0.9% 1000 ML** 1,000 ML IV SCH ×2 (05:31→16:48)
[2019-08-14 08:25] LABS: ABS Eosinophils 0.3 10^3/ul (0-0.6); ABS Lymphocytes 1.6 10^3/ul (1.0-4.8); ABS Neutrophils 15.8 10^3/ul (1.5-7.7); Eosinophil % 1.5 %; Hematocrit 31 % (35-47); Hemoglobin 10.8 g/dL (12.0-16.0); Lymphocyte % 8.4 %; Mean Corpuscular HGB Conc 34 g/dL (31-36); Mean Corpuscular Hemoglobin 30 pg (27-31); Mean Corpuscular Volume 86 fL (80-97); Mean Platelet Volume 8.6 fL (7.4-10.4); Platelet Count 211 10^3/uL (150-450); Red Blood Count 3.63 10^6 /uL (3.70-4.87); Red Cell Distribution Width 13 % (10-15); White Blood Count 18.7 10^3/uL (3.5-10.8)
[2019-08-14 08:41] LABS: INR 1.11 (0.82-1.09)
[2019-08-14 08:44] LABS: BUN/Creatinine Ratio 2.9 (8-20); C Reactive Protein 101.33 mg/L (<8.01); Calcium 8.2 mg/dL (8.6-10.3); EGFR African American 109.9 (>60); EGFR Non-African American 90.8 (>60); Potassium 3.6 mmol/L (3.5-5.0)
[2019-08-14] MEDS ORDERED: Influenza VAC *QUAD* 2019-20* 0.5 ML SYRINGE IM ONE (09:00)
--- NOTE | 2019-08-14 09:25 | PN ---
Subjective Date of Service: 08/14/19 Interval History: Febrile to 100.8 yesterday morning; afebrile since then. She had a nonbloody bowel movement this morning. Was diarrhea but no blood. Dilaudid decreased to 1mg q3h overnight per her request. This is controlling her pain adequately. Tolerating clear liquids and is interested in advancing today if okay with GI. Objective Active Medications: Albuterol (Ventolin Hfa Inhaler*) 2 puff INH Q4H PRN PRN Reason: SOB/WHEEZING Diphenhydramine HCl (Benadryl Po*) 25 mg PO Q6H PRN PRN Reason: Allergy Symptoms Last Admin: 08/14/19 02:33 Dose: 25 mg Hydromorphone HCl (Dilaudid Inj1s*) 1 mg IV Q3H PRN PRN Reason: PAIN - SEVERE Last Admin: 08/14/19 05:51 Dose: 1 mg Sodium Chloride (Ns 0.9% 1000 Ml) 1,000 mls @ 125 mls/hr IV PER RATE [facility] Last Admin: 08/14/19 05:31 Dose: 125 mls/hr Piperacillin Sod/Tazobactam (Sod 3.375 gm/ Sodium Chloride) 100 mls @ 25 mls/ hr IVPB Q8H [facility] Last Admin: 08/14/19 03:47 Dose: 25 mls/hr Nitroglycerin (Nitroglycerin Tab 0.4 Mg*) 0.4 mg SL Q5M PRN PRN Reason: ANGINA Ondansetron HCl (Zofran Inj*) 4 mg IV Q4H PRN PRN Reason: NAUSEA Last Admin: 08/14/19 01:57 Dose: 4 mg Pharmacy Consult (Zosyn Per Pharmacy*) 1 note FOLLOW UP . PRN PRN Reason: PER PROTOCOL Pramipexole Dihydrochloride (Mirapex Tab*) 1 mg PO BEDTIME [facility] Last Admin: 08/13/19 20:30 Dose: 1 mg Sucralfate (Carafate*) 1 gm PO 0600,1100,1600,2100 [facility] Last Admin: 08/14/19 05:31 Dose: 1 gm Sumatriptan Succinate (Imitrex Tab*) 100 mg PO .SEE INSTRUCTIONS PRN PRN Reason: MIGRAINE HEADACHE Last Admin: 08/14/19 01:54 Dose: 100 mg Vital Signs - 8 hr 08/14/19 08/14/19 08/14/19 01:55 02:33 02:37 Temperature 98.6 F Pulse Rate 91 Respiratory 7 16 16 Rate Blood Pressure 112/69 (mmHg) O2 Sat by Pulse 97 Oximetry 08/14/19 08/14/19 08/14/19 03:14 05:51 06:51 Temperature Pulse Rate Respiratory 16 18 16 Rate Blood Pressure (mmHg) O2 Sat by Pulse Oximetry 08/14/19 07:15 Temperature 99.7 F Pulse Rate 85 Respiratory 16 Rate Blood Pressure 111/83 (mmHg) O2 Sat by Pulse 96 Oximetry Oxygen Devices in Use Now: None Appearance: alert, nontoxic appearing Eyes: No Scleral Icterus Ears/Nose/Mouth/Throat: NL Teeth, Lips, Gums, Mucous Membranes Moist Neck: NL Appearance and Movements; NL JVP Respiratory: Symmetrical Chest Expansion and Respiratory Effort Cardiovascular: NL Sounds; No Murmurs; No JVD, RRR Abdominal: - - soft, mildly bloated, tender to deep palpation LLQ without guarding or rebound Lymphatic: No Cervical Adenopathy Extremities: No Edema, - - left shoulder incisions are clean and dry; left arm immobilized Result Diagrams: 08/14/19 08:18 08/14/19 08:18 Microbiology and Other Data: Microbiology 08/12/19 15:15 Stool Gross Appearance - Final Stool Stool Lactoferrin - Final Stool Occult Blood (CAITLYN) - Final Assess/Plan/Problems-Billing Assessment: This is a 48 year old woman with history of migraines, hypermobility syndrome, and a recent left shoulder surgery who presented 08/12 with abdominal pain and was found to have sigmoid and transverse colitis. - Patient Problems (1) Ischemic colitis Current Visit: Yes Status: Acute Code(s): K55.9 - VASCULAR DISORDER OF INTESTINE, UNSPECIFIED SNOMED Code(s): 21294142 Comment: confirmed on sigmoidoscopy 08/13 inciting factor unclear--no typical vascular risk factors (does have h/o migraines) continue supportive care with IVF, bowel rest, pain control pip/tazo added 08/13 ([facility] [place] [place] clinical guideline: epidemiology, risk factors, patterns of presentation, diagnosis, and management of colon ischemia) (2) Status post shoulder surgery Current Visit: Yes Status: Acute Code(s): Z98.890 - OTHER SPECIFIED POSTPROCEDURAL STATES SNOMED Code(s): 323596206 Comment: pain controlled (3) Restless leg syndrome Current Visit: Yes Status: Acute Comment: continue pramipexole (4) DVT prophylaxis Current Visit: Yes Status: Acute Code(s): Z29.9 - ENCOUNTER FOR PROPHYLACTIC MEASURES, UNSPECIFIED SNOMED Code(s): 808133085 Comment: contraindicated in setting of bloody diarrhea
[2019-08-14] MEDS ORDERED: HYDROmorphone INJ1* 1 MG/ML SYRINGE IV ONE (13:15)
[2019-08-14] MEDS: Pramipexole TAB* 0.5 MG PO SCH (21:19)
[2019-08-15] MEDS: NS 0.9% 1000 ML** 1,000 ML IV SCH ×3 (03:45→20:56)
[2019-08-15] MEDS: Piperacillin/Tazobac ADVAN(*) 3.375 GM in NS 0.9% 100 ML* 100 ML IVPB SCH ×3 (03:45→21:03)
[2019-08-15] MEDS: Ondansetron INJ* 2 MG/ML VIAL IV PRN ×4 (03:59→21:32)
[2019-08-15] MEDS: HYDROmorphone INJ1* 1 MG/ML SYRINGE IV PRN ×5 (03:59→23:59)
[2019-08-15] MEDS: Sucralfate TAB* 1 GM PO SCH ×4 (05:46→20:56)
[2019-08-15 06:46] LABS: ABS Eosinophils 0.3 10^3/ul (0-0.6); ABS Lymphocytes 1.5 10^3/ul (1.0-4.8); ABS Monocytes 0.7 10^3/ul (0-0.8); ABS Neutrophils 11.3 10^3/ul (1.5-7.7); Eosinophil % 2.5 %; Hematocrit 28 % (35-47); Hemoglobin 9.8 g/dL (12.0-16.0); Lymphocyte % 10.7 %; Mean Corpuscular HGB Conc 35 g/dL (31-36); Mean Corpuscular Hemoglobin 30 pg (27-31); Mean Corpuscular Volume 86 fL (80-97); Mean Platelet Volume 9.1 fL (7.4-10.4); Platelet Count 202 10^3/uL (150-450); Red Blood Count 3.25 10^6 /uL (3.70-4.87); Red Cell Distribution Width 13 % (10-15); White Blood Count 13.8 10^3/uL (3.5-10.8)
[2019-08-15 06:58] LABS: BUN/Creatinine Ratio 3.1 (8-20); C Reactive Protein 70.98 mg/L (<8.01); EGFR African American 119.8 (>60); Magnesium 1.6 mg/dL (1.9-2.7); Potassium 3.7 mmol/L (3.5-5.0)
[2019-08-15] MEDS ORDERED: Magnesium Sulf 4 GM/100 ML IV* 4,000 MG/100 ML BAG IVPB ONE (07:16)
[2019-08-15] MEDS: SUMAtriptan TAB* 100 MG PO PRN (08:26)
[2019-08-15] MEDS ORDERED: HYDROmorphone INJ1* 1 MG/ML SYRINGE IV PRN (14:10)
--- NOTE | 2019-08-15 16:06 | PN ---
Progress Note - Progress Note Date of Service: 08/15/19 Note: pt seen and examined; events of weekend noted multiple visitors in room, mother, friend, friend, and massage therapist pt states pain was bad a few hours ago; has spoken with Dr Carbajal about adjusting dose; no bms since yesterday; no blood; +flatus she feels that she is improving; wants to advance diet VS: 98.6, 130/85, 85 nad, appears sleepy +bs, soft, mild LLQ tenderness neg crypto, shiga, +lact colon bx Pending 48 yo female with ?ischemic colitis; labs pending, bx pending; improving, will advance diet James Perry MD [facility]
--- NOTE | 2019-08-15 17:36 | PN ---
Subjective Date of Service: 08/15/19 Interval History: Small BM yesterday afternoon with mucous and "a little of blood" This AM tolerating low residue diet Pain "everywhere from hypermobility" Feel abdomen is distended but feeling better Objective Active Medications: Albuterol (Ventolin Hfa Inhaler*) 2 puff INH Q4H PRN PRN Reason: SOB/WHEEZING Diphenhydramine HCl (Benadryl Po*) 25 mg PO Q6H PRN PRN Reason: Allergy Symptoms Last Admin: 08/14/19 23:27 Dose: 25 mg Hydromorphone HCl (Dilaudid Inj1s*) 1 mg IV Q3H PRN PRN Reason: PAIN - SEVERE Last Admin: 08/15/19 17:26 Dose: 1 mg Hydromorphone HCl (Dilaudid Inj1s*) 1 mg IV ONCE PRN PRN Reason: SEVERE BREAKTHROUGH PAIN Last Admin: 08/15/19 14:21 Dose: 1 mg Piperacillin Sod/Tazobactam (Sod 3.375 gm/ Sodium Chloride) 100 mls @ 25 mls/ hr IVPB Q8H [facility] Last Admin: 08/15/19 12:13 Dose: 25 mls/hr Sodium Chloride (Ns 0.9% 1000 Ml) 1,000 mls @ 75 mls/hr IV PER RATE [facility] Nitroglycerin (Nitroglycerin Tab 0.4 Mg*) 0.4 mg SL Q5M PRN PRN Reason: ANGINA Ondansetron HCl (Zofran Inj*) 4 mg IV Q4H PRN PRN Reason: NAUSEA Last Admin: 08/15/19 09:58 Dose: 4 mg Pharmacy Consult (Zosyn Per Pharmacy*) 1 note FOLLOW UP . PRN PRN Reason: PER PROTOCOL Pramipexole Dihydrochloride (Mirapex Tab*) 1 mg PO BEDTIME [facility] Last Admin: 08/14/19 21:19 Dose: 1 mg Sucralfate (Carafate*) 1 gm PO 0600,1100,1600,2100 [facility] Last Admin: 08/15/19 17:27 Dose: 1 gm Sumatriptan Succinate (Imitrex Tab*) 100 mg PO .SEE INSTRUCTIONS PRN PRN Reason: MIGRAINE HEADACHE Last Admin: 08/15/19 08:26 Dose: 100 mg Vital Signs - 8 hr 08/15/19 08/15/19 08/15/19 09:58 10:58 11:15 Temperature 98.6 F Pulse Rate 85 Respiratory 22 16 14 Rate Blood Pressure 130/85 (mmHg) O2 Sat by Pulse 98 Oximetry 08/15/19 08/15/19 08/15/19 13:04 13:59 14:21 Temperature Pulse Rate Respiratory 14 18 16 Rate Blood Pressure (mmHg) O2 Sat by Pulse Oximetry 08/15/19 08/15/19 08/15/19 15:15 15:21 17:26 Temperature 98.4 F Pulse Rate 85 Respiratory 16 16 18 Rate Blood Pressure 117/69 (mmHg) O2 Sat by Pulse 98 Oximetry Oxygen Devices in Use Now: None Appearance: sitting up in bed, NAD Eyes: No Scleral Icterus, PERRLA Ears/Nose/Mouth/Throat: NL Teeth, Lips, Gums, Clear Oropharnyx Neck: NL Appearance and Movements; NL JVP, Trachea Midline Respiratory: Symmetrical Chest Expansion and Respiratory Effort, Clear to Auscultation Cardiovascular: RRR Abdominal: - - mild distention, mild TTP throughout, +BS Extremities: No Edema, No Clubbing, Cyanosis, - - left arm in sling/binder Neurological: Alert and Oriented x 3 Result Diagrams: 08/15/19 06:04 08/15/19 06:04 Microbiology and Other Data: Microbiology 08/12/19 15:15 Stool Gross Appearance - Final Stool Stool Lactoferrin - Final Stool Occult Blood (CAITLYN) - Final Assess/Plan/Problems-Billing Assessment: This is a 48 year old woman with history of migraines, hypermobility syndrome, and a recent left shoulder surgery (superspinatus repair) who presented 08/12 with abdominal pain and was found to have sigmoid and transverse colitis 2/2 suspect ischemic colitis - Patient Problems (1) Ischemic colitis Comment: confirmed on sigmoidoscopy 08/13 IVF decreased to 75cc/hr - d/c tomorrow Low residue diet - pain today after lunch, will not advance at this time pain control IV dilaudid pip/tazo added 08/13 ([facility] [place] guideline: epidemiology, risk factors, patterns of presentation, diagnosis, and management of colon ischemia) Last Fever 08/14 (2) Restless leg syndrome Comment: continue pramipexole (3) Status post shoulder surgery Comment: pain controlled (4) DVT prophylaxis Comment: contraindicated in setting of bloody diarrhea Consider start tomorrow Ambulating
--- NOTE | 2019-08-15 20:26 | PN ---
Progress Note - Progress Note Date of Service: 08/15/19 Note: Cross-cover note: Patient reports pain level 7-8/10. Reports she was told she need to keep a little ahead of the pain, and she got behind today, with a delay and a trial of honey. She agrees to 2 mg now, hopefully will allow her to sleep, and then back to 1 mg q3h prn pain, goal pain level 3-5/10 average. She expresses goal to be on 1 mg overnight, then try 1/2 mg tomorrow.
[2019-08-15] MEDS ORDERED: HYDROmorphone INJ1* 1 MG/ML SYRINGE IV SLOW PU ONE (20:30)
[2019-08-15] MEDS: Pramipexole TAB* 0.5 MG PO SCH (20:56)
[2019-08-15] MEDS: diPHENhydraMINE PO* 25 MG PO PRN (21:32)
[2019-08-16] MEDS: SUMAtriptan TAB* 100 MG PO PRN ×2 (00:07→17:08)
[2019-08-16] MEDS: Ondansetron INJ* 2 MG/ML VIAL IV PRN ×5 (02:18→21:11)
[2019-08-16] MEDS: HYDROmorphone INJ1* 1 MG/ML SYRINGE IV PRN ×6 (02:51→21:00)
[2019-08-16] MEDS: Piperacillin/Tazobac ADVAN(*) 3.375 GM in NS 0.9% 100 ML* 100 ML IVPB SCH ×3 (04:00→21:03)
[2019-08-16] MEDS: Sucralfate TAB* 1 GM PO SCH ×4 (06:21→21:04)
[2019-08-16] MEDS ORDERED: Polyethylene Glycol 3350* 17 GM PACKET PO PRN (10:57)
[2019-08-16] MEDS: NS 0.9% 1000 ML** 1,000 ML IV SCH (12:29)
--- NOTE | 2019-08-16 16:24 | PN ---
Subjective Date of Service: 08/16/19 Interval History: Feeling constipated No additional blood from below No nausea Tolerating unrestricted diet Objective Active Medications: Albuterol (Ventolin Hfa Inhaler*) 2 puff INH Q4H PRN PRN Reason: SOB/WHEEZING Diphenhydramine HCl (Benadryl Po*) 25 mg PO Q6H PRN PRN Reason: Allergy Symptoms Last Admin: 08/15/19 21:32 Dose: 25 mg Hydromorphone HCl (Dilaudid Inj1s*) 0.5 mg IV Q3H PRN PRN Reason: PAIN - SEVERE Last Admin: 08/16/19 13:37 Dose: 0.5 mg Piperacillin Sod/Tazobactam (Sod 3.375 gm/ Sodium Chloride) 100 mls @ 25 mls/ hr IVPB Q8H [facility] Last Admin: 08/16/19 12:23 Dose: 25 mls/hr Nitroglycerin (Nitroglycerin Tab 0.4 Mg*) 0.4 mg SL Q5M PRN PRN Reason: ANGINA Ondansetron HCl (Zofran Inj*) 4 mg IV Q4H PRN PRN Reason: NAUSEA Last Admin: 08/16/19 10:42 Dose: 4 mg Pharmacy Consult (Zosyn Per Pharmacy*) 1 note FOLLOW UP . PRN PRN Reason: PER PROTOCOL Polyethylene Glycol/Electrolytes (Miralax*) 17 gm PO DAILY PRN PRN Reason: CONSTIPATION Last Admin: 08/16/19 12:24 Dose: 17 gm Pramipexole Dihydrochloride (Mirapex Tab*) 1 mg PO BEDTIME [facility] Last Admin: 08/15/19 20:56 Dose: 1 mg Sucralfate (Carafate*) 1 gm PO 0600,1100,1600,2100 [facility] Last Admin: 08/16/19 10:41 Dose: 1 gm Sumatriptan Succinate (Imitrex Tab*) 100 mg PO .SEE INSTRUCTIONS PRN PRN Reason: MIGRAINE HEADACHE Last Admin: 08/16/19 00:07 Dose: 100 mg Vital Signs - 8 hr 08/16/19 08/16/19 08/16/19 09:00 09:58 11:15 Temperature 96.4 F Pulse Rate 73 Respiratory 18 18 16 Rate Blood Pressure 106/66 (mmHg) O2 Sat by Pulse 98 Oximetry 1008/16/19 08/16/19 11:17 13:37 15:05 Temperature Pulse Rate Respiratory 18 18 16 Rate Blood Pressure (mmHg) O2 Sat by Pulse Oximetry 08/16/19 15:15 Temperature 96.9 F Pulse Rate 84 Respiratory 18 Rate Blood Pressure 114/72 (mmHg) O2 Sat by Pulse 100 Oximetry Oxygen Devices in Use Now: None Appearance: NAD Eyes: No Scleral Icterus, PERRLA Ears/Nose/Mouth/Throat: NL Teeth, Lips, Gums, Clear Oropharnyx Neck: NL Appearance and Movements; NL JVP, Trachea Midline Respiratory: Symmetrical Chest Expansion and Respiratory Effort, Clear to Auscultation Cardiovascular: NL Sounds; No Murmurs; No JVD, RRR Abdominal: - - soft, ND, mild TTP greatest LUQ Lymphatic: No Cervical Adenopathy Extremities: No Edema Skin: No Rash or Ulcers Neurological: Alert and Oriented x 3 Result Diagrams: 08/15/19 06:04 08/15/19 06:04 Microbiology and Other Data: Microbiology 08/12/19 15:15 Stool Gross Appearance - Final Stool Stool Lactoferrin - Final Stool Occult Blood (CAITLYN) - Final Assess/Plan/Problems-Billing Assessment: This is a 48 year old woman with history of migraines, hypermobility syndrome, and a recent left shoulder surgery (superspinatus repair) who presented 08/12 with abdominal pain and was found to have sigmoid and transverse colitis 2/2 biopsy proven ischemic colitis - Patient Problems (1) Ischemic colitis Comment: confirmed on sigmoidoscopy 08/13 - biopsy final Tolerating unrestricted diet, d/c tomorrow IVF pain control IV dilaudid -08/16 decreased 1mg IV dilaudid q3hr to 0.5mg q3hr pip/tazo added 08/13 ([facility] [place] clinical guideline: epidemiology, risk factors, patterns of presentation, diagnosis, and management of colon ischemia) Last Fever 08/14 (2) Restless leg syndrome Comment: continue pramipexole (3) Status post shoulder surgery Comment: pain controlled (4) DVT prophylaxis Comment: contraindicated in setting of bloody diarrhea Ambulating
[2019-08-16] MEDS: Docusate CAP* 100 MG PO PRN (17:09)
[2019-08-16] MEDS ORDERED: HYDROmorphone INJ1* 1 MG/ML SYRINGE IV SLOW PU ONE (17:16)
[2019-08-16] MEDS: Pramipexole TAB* 0.5 MG PO SCH (21:04)
[2019-08-17] MEDS: HYDROmorphone INJ1* 1 MG/ML SYRINGE IV PRN ×4 (01:23→23:58)
[2019-08-17] MEDS ORDERED: Mineral Oil, LAXITIVE* 30 ML UDC PO PRN (01:33)
[2019-08-17] MEDS: Piperacillin/Tazobac ADVAN(*) 3.375 GM in NS 0.9% 100 ML* 100 ML IVPB SCH ×3 (04:15→20:19)
[2019-08-17] MEDS: Sucralfate TAB* 1 GM PO SCH ×4 (06:53→20:18)
[2019-08-17 07:44] LABS: BUN/Creatinine Ratio 4.4 (8-20); C Reactive Protein 24.31 mg/L (<8.01); Calcium 9.1 mg/dL (8.6-10.3); EGFR African American 111.7 (>60); EGFR Non-African American 92.3 (>60); Potassium 3.6 mmol/L (3.5-5.0)
[2019-08-17] MEDS ORDERED: oxyCODONE/Acetamin 5/325 MG* TAB PO PRN (08:04)
[2019-08-17] MEDS ORDERED: Polyethylene Glycol 3350* 17 GM PACKET PO ONE (08:05)
[2019-08-17] MEDS: Ondansetron INJ* 2 MG/ML VIAL IV PRN (12:47)
--- NOTE | 2019-08-17 17:40 | PN ---
Subjective Date of Service: 08/17/19 Interval History: constipation improved no blood in stool pain improving but still requiring IV meds for breakthrough tolerating diet Objective Active Medications: Albuterol (Ventolin Hfa Inhaler*) 2 puff INH Q4H PRN PRN Reason: SOB/WHEEZING Amphetamine/Dextroamphetamine (Adderal Xr (Nf)) 50 mg PO DAILY VICTOR M Diphenhydramine HCl (Benadryl Po*) 25 mg PO Q6H PRN PRN Reason: Allergy Symptoms Last Admin: 08/15/19 21:32 Dose: 25 mg Docusate Sodium (Colace Cap*) 200 mg PO DAILY PRN PRN Reason: CONSTIPATION Last Admin: 08/16/19 17:09 Dose: 200 mg Hydromorphone HCl (Dilaudid Inj1s*) 0.5 mg IV Q3H PRN PRN Reason: Pain - level 8-10 Last Admin: 08/17/19 12:47 Dose: 0.5 mg Piperacillin Sod/Tazobactam (Sod 3.375 gm/ Sodium Chloride) 100 mls @ 25 mls/ hr IVPB Q8H VICTOR M Last Admin: 08/17/19 13:24 Dose: 25 mls/hr Mineral Oil (Mineral Oil*) 30 ml PO DAILY PRN PRN Reason: CONSTIPATION Last Admin: 08/17/19 01:57 Dose: 30 ml Morphine Sulfate (Morphine Oral.Soln 10 Mg*) 10 mg PO Q3H PRN PRN Reason: Pain - level 4-7 Nitroglycerin (Nitroglycerin Tab 0.4 Mg*) 0.4 mg SL Q5M PRN PRN Reason: ANGINA Ondansetron HCl (Zofran Inj*) 4 mg IV Q4H PRN PRN Reason: NAUSEA Last Admin: 08/17/19 12:47 Dose: 4 mg Oxycodone/Acetaminophen (Percocet 5/325 Tab*) 1 tab PO Q3H PRN PRN Reason: Pain - pain level 2-3 Pharmacy Consult (Zosyn Per Pharmacy*) 1 note FOLLOW UP . PRN PRN Reason: PER PROTOCOL Polyethylene Glycol/Electrolytes (Miralax*) 17 gm PO DAILY PRN PRN Reason: CONSTIPATION Last Admin: 08/16/19 12:24 Dose: 17 gm Pramipexole Dihydrochloride (Mirapex Tab*) 1 mg PO BEDTIME [facility]CTOR M Last Admin: 08/16/19 21:04 Dose: 1 mg Sucralfate (Carafate*) 1 gm PO 0600,1100,1600,2100 [facility] Last Admin: 08/17/19 10:59 Dose: 1 gm Sumatriptan Succinate (Imitrex Tab*) 100 mg PO .SEE INSTRUCTIONS PRN PRN Reason: MIGRAINE HEADACHE Last Admin: 08/16/19 17:08 Dose: 100 mg Vital Signs - 8 hr 08/17/19 08/17/19 08/17/19 11:15 12:47 14:20 Temperature 97.5 F Pulse Rate 81 Respiratory 18 16 16 Rate Blood Pressure 132/86 (mmHg) O2 Sat by Pulse 98 Oximetry Oxygen Devices in Use Now: None Appearance: NAD Eyes: No Scleral Icterus Ears/Nose/Mouth/Throat: NL Teeth, Lips, Gums, Clear Oropharnyx Neck: NL Appearance and Movements; NL JVP, Trachea Midline Respiratory: Symmetrical Chest Expansion and Respiratory Effort, Clear to Auscultation Cardiovascular: RRR, - - mild TTP greatest RUQ Lymphatic: No Cervical Adenopathy Extremities: No Edema Skin: No Rash or Ulcers Neurological: Alert and Oriented x 3 Result Diagrams: 08/15/19 06:04 08/17/19 07:06 Microbiology and Other Data: Microbiology 08/12/19 15:15 Stool Gross Appearance - Final Stool Stool Lactoferrin - Final Stool Occult Blood (CAITLYN) - Final Assess/Plan/Problems-Billing Assessment: This is a 48 year old woman with history of migraines, hypermobility syndrome, and a recent left shoulder surgery (superspinatus repair) who presented 08/12 with abdominal pain and was found to have sigmoid and transverse colitis 2/2 biopsy proven ischemic colitis - Patient Problems (1) Ischemic colitis Comment: confirmed on sigmoidoscopy 08/13 - biopsy final Tolerating unrestricted diet, d/c'ed tomorrow IVF pain control IV dilaudid -08/16 decreased 1mg IV dilaudid q3hr to 0.5mg q3hr 08/17 transitioned to PO. pip/tazo added 08/13 ([facility] [place] clinical guideline: epidemiology, risk factors, patterns of presentation, diagnosis, and management of colon ischemia) - last day abx tomorrow Last Fever 08/14 (2) Restless leg syndrome Comment: continue pramipexole (3) Status post shoulder surgery Comment: pain controlled (4) DVT prophylaxis Comment: contraindicated in setting of bloody diarrhea Ambulating
[2019-08-17] MEDS: Morphine ORAL.SOLN 10 mg* 2 MG/ML UDC 5 ml PO PRN (18:01)
[2019-08-17] MEDS: Pramipexole TAB* 0.5 MG PO SCH (20:18)
[2019-08-17] MEDS: Docusate CAP* 100 MG PO PRN (20:32)
[2019-08-17] MEDS ORDERED: buPROPion SR TAB.SR* 200 MG PO ONE (21:00)
[2019-08-18] MEDS: Ondansetron INJ* 2 MG/ML VIAL IV PRN (00:08)
[2019-08-18] MEDS: diPHENhydraMINE PO* 25 MG PO PRN (01:30)
[2019-08-18] MEDS: Piperacillin/Tazobac ADVAN(*) 3.375 GM in NS 0.9% 100 ML* 100 ML IVPB SCH (04:20)
[2019-08-18] MEDS: Sucralfate TAB* 1 GM PO SCH (06:08)
[2019-08-18] MEDS: Morphine ORAL.SOLN 10 mg* 2 MG/ML UDC 5 ml PO PRN (07:24)
[2019-08-18] MEDS: Docusate CAP* 100 MG PO PRN (07:25)
[2019-08-18 08:07] VITALS: BP 129/83
[2019-08-18] MEDS ORDERED: AMPHETAMINE PO SCH (09:00)
[2019-08-18] MEDS ORDERED: buPROPion SR TAB.SR* 200 MG PO SCH (09:00)
[2019-08-18] MEDS ORDERED: DEXTROAMPH PO SCH (09:00)
--- NOTE | 2019-08-18 10:22 | DS ---
CC: Dr. Manny Reyes * DISCHARGE SUMMARY: DATE OF ADMISSION: 08/12/19 DATE OF DISCHARGE: 08/18/19 PRIMARY CARE PROVIDER: Dr. Manny Reyes. DISPOSITION ON DISCHARGE: Home. CONDITION ON DISCHARGE: Good. PRIMARY DIAGNOSES: 1. Ischemic colitis - biopsy proven. 2. Uncontrolled pain. SECONDARY DIAGNOSES: Include: 1. Hypermobility syndrome. 2. Asthma. 3. History of migraines. 4. Restless leg syndrome. 5. History of post concussive syndrome associated with subdural hematoma, which is why she takes the Wellbutrin. MEDICATIONS ON DISCHARGE: Include: 1. Oxycodone 10 mg every 4 hours as needed for pain, dispensed 36 tabs for 3 days. 2. Wellbutrin SR 400 mg twice daily. 3. Albuterol ProAir 2 puffs every 4 to 6 hours as needed for shortness of breath. 4. Sumatriptan 100 mg as needed at first onset of migraine. 5. Nitroglycerin 0.4 mg sublingual every 5 minutes as needed for chest pain. 6. Aspirin 81 mg daily. 7. Pramipexole, which is Mirapex 1 mg daily. 8. Adderall XR 15 mg daily. 9. Carafate 1 g every 4 hours as needed for indigestion. 10. MiraLAX 17 g daily as needed for constipation. PERTINENT LABORATORY DATA: White blood cell count on presentation 13.1, peaked at 18.3. CRP on presentation 101, decreased to 24 on day prior to discharge. Parasite exam for stool, no parasite seen. Other pertinent laboratory data includes hemoglobin of 9.8 on 08/15/19. PROCEDURES PERFORMED DURING HOSPITAL STAY: Flex sigmoidoscopy with biopsy notable for ischemic colitis, performed by Dr. Sethi 08/13/19. HISTORY OF PRESENT ILLNESS AND HOSPITAL COURSE: This is a 48-year-old female with past medical history as outlined in the history of present illness on the day of admission, presented to the hospital with abdominal pain with blood in stool described as tomato soup, associated with leukocytosis and low-grade fever to 100.8 one time on the day of admission, is admitted to the hospital for lower GI bleed, underwent a flex sigmoidoscopy with biopsies. Bleeding resolved on its own. She required no blood transfusions. She was treated for 5 days with antibiotics with piperacillin and tazobactam. She received supportive care with IV fluids. Her diet was advanced gradually. She did have intractable pain that was difficult to control, ultimately required IV Dilaudid , was able to fully transition to oral morphine. She is ultimately being discharged on a similar morphine equivalent, however, utilizing oxycodone at the time of discharge. She did feel prepared leaving the hospital a day prior to discharge; however, I was concerned given her continued need for IV medications, IV pain control. On the day of discharge, she again felt ready to be discharged. She was utilizing minimal narcotics, although did require IV Dilaudid 0.5 mg the night prior to discharge, although she indicated there was some confusion, she was not able to obtain the oral medication that she requested. Other than the addition of narcotics, there is no addition to her home medications. There are no other complications during the course of the hospital stay. At follow up, please: 1. Evaluate for pain resolution. 2. Consider repeat CBC for stability of hemoglobin. 3. No other specific labs or vitals that need followup. Reason return to the hospital discussed with the patient at length including recurrent worsening symptoms including worsening or change in the character of abdominal pain, recurred bright red blood per stool or black stool indicating additional bleeding, lightheadedness, loss of consciousness or near loss of consciousness, chest pain, shortness breath, inability to obtain or tolerate medications discussed with the patient who acknowledged understanding. TIME SPENT: Greater than 45 minutes was spent on the discharge of this patient , greater than half was spent [id number] with the patient. [id number]/[facility] #: [id number] CARLO
== END 2019-08-18 10:05 | disposition home or self-care (01) | DRG 246 ==
LOC: ED 06:24 → MED 12:11
PROVIDERS: ADMIT Internal Medicine; ATTEND Internal Medicine
PROC: 0DBN8ZX Excision of Sigmoid Colon, Via Natural or Artificial Opening Endoscopic, Diagnostic (ICD-10-PCS; principal; 2019-08-13)
DX: K55.9 Vascular disorder of intestine, unspecified (principal); K62.5 Hemorrhage of anus and rectum; G43.909 Migraine, unspecified, not intractable, without status migrainosus; K21.9 Gastro-esophageal reflux disease without esophagitis; M35.7 Hypermobility syndrome; K59.03 Drug induced constipation; T40.605A Adverse effect of unspecified narcotics, initial encounter; G25.81 Restless legs syndrome; J45.909 Unspecified asthma, uncomplicated; F32.9 Major depressive disorder, single episode, unspecified; Z79.82 Long term (current) use of aspirin; Z88.1 Allergy status to other antibiotic agents; Z88.2 Allergy status to sulfonamides; Y92.9 Unspecified place or not applicable; Z87.820 Personal history of traumatic brain injury; Z72.89 Other problems related to lifestyle
CPT/HCPCS: 36415; 74177; 80048; 80053; 81003; 82272; 83605; 83630; 83690; 83735; 84702; 85025; 85610; 86140; 87045; 87046; 87177; 87209; 87328; 87329; 87899; 88305; 96365; 96375; 96376; 99156; 99157; 99284; A9270-GY; J1170; J1200; J2250; J2270; J2405; J2543; J3010; J3475; Q9967